=== PATIENT | female | born 2000 | race Caucasian/White ===

== ENCOUNTER 2019-10-08 23:18 | Emergency (ER) | payer OTHER ==
[2019-10-08] MEDS: LORazepam 1 MG Tab PO ONE (23:32)
--- NOTE | 2019-10-08 23:53 | EDM.PDOCBH ---
ED HPI GENERAL MEDICAL PROBLEM - General Chief Complaint: Behavioral/Psych Stated Complaint: SUICIDAL, INTOXICATED Time Seen by Provider: 10/08/19 23:19 Source of Information: Reports: Patient, Police History Limitations: Reports: Intoxication - History of Present Illness INITIAL COMMENTS - FREE TEXT/NARRATIVE: Patient comes emergency department today by the local Police Department with concerns of alcohol intoxication and suicidal ideation. This patient was found laying on the street intoxicated crying and stating that she was suicidal. The police brought her to the emergency department as she is suicidal. Upon arrival the patient relates that she has been suicidal for the years approximately 3 years. Today she was kicked out of her house with her friends because because he had concerns about her cleanliness of the house. She states that she drinks about 4 to 5 days a week enough to not remember anything that is happening. Has attempted to harm herself in the past by cutting her wrist. She has never sought out any treatment assistance or counseling. She did not take anything in an attempt to kill herself tonight. Her plan to kill her self is to lay on the street until someone drives her over. If this does not work she will go into the river when she is bored. She works at a [employer] here in [place]. All she wants to do is . She cannot take her life anymore she is done. She wants help and knows that she needs it. No COVID exposure and No COVID symptoms. - Related Data Allergies Allergy/AdvReac Type Severity Reaction Status Date / Time amoxicillin [From Augmentin] Allergy Hives Verified 10/08/19 23:19 clavulanic acid Allergy Hives Verified 10/08/19 23:19 [From Augmentin] Home Meds: Home Meds . [No Known Home Meds] 10/08/19 [History] Social & Family History - Tobacco Use Smoking Status *Q: Current Status Unknown ED ROS GENERAL - Review of Systems Review Of Systems: Comprehensive ROS is negative, except as noted in HPI. ED EXAM, BEHAVIORAL HEALTH - Physical Exam Exam: See Below Exam Limited By: Intoxication General Appearance: Alert, WD/WN, Anxious Eye Exam: Bilateral Eye: EOMI Ears: Normal External Exam Nose: Normal Inspection Throat/Mouth: Normal Inspection, Normal Lips Head: Atraumatic, Normocephalic Neck: Normal Inspection, Supple Respiratory/Chest: No Respiratory Distress, Lungs Clear, Normal Breath Sounds, No Accessory Muscle Use, Chest Non-Tender Cardiovascular: Normal Peripheral Pulses, Regular Rate, Rhythm GI/Abdominal: Normal Bowel Sounds, Soft, Non-Tender (Female) Exam: Deferred Rectal (Female) Exam: Deferred Back Exam: Normal Inspection Extremities: Normal Inspection, Normal Range of Motion, Normal Capillary Refill Neurological: Alert, Normal Mood/Affect, No Motor/Sensory Deficits Psychiatric: Alert, Oriented, Tearful (bawling and hyperventilating. ), Poor Eye Contact, Suicidal Plan (as per HPI. ), Suicidal Thoughts (as per HPI). No: Homicidal Thoughts, Phobic, Islam Delusions, Tangential Thoughts, Auditory Hallucinations, Visual Hallucinations, Grandiose Thoughts, Pressured Speech, Paranoid Thoughts, Threatening Behavior Skin Exam: Warm, Dry, Intact, Normal color, No rash COURSE, BEHAVIORAL HEALTH COMP - Course Vital Signs: Last Vital Signs Temp 98.3 F 10/08/19 23:19 Pulse 130 H 10/08/19 23:51 Resp 24 H 10/08/19 23:19 BP 149/73 H 10/08/19 23:19 Pulse Ox 100 10/08/19 23:19 Orders, Labs, Meds: Active Orders 24 hr Category Date Time Status SALICYLATE [REF] Stat Lab 10/08/19 23:30 Ordered Laboratory Tests 10/08/19 10/08/19 10/08/19 Range/Units 23:35 23:35 23:35 WBC (4.0-10.0) x10^3/uL RBC (4.00-5.50) x10^6/uL Hgb (12.0-16.0) g/dL Hct (33.0-47.0) % MCV (78.0-93.0) fL MCH (26.0-32.0) pg MCHC (32.0-36.0) g/dL RDW Coeff of Justice (10.0-15.0) % Plt Count (130-400) x10^3/uL Neut % (Auto) (50.0-80.0) % Lymph % (Auto) (25.0-50.0) % Shannon % (Auto) (2.0-11.0) % Eos % (Auto) (0.0-4.0) % Baso % (Auto) (0.2-1.2) % Sodium (136-145) mmol/L Potassium (3.5-5.1) mmol/L Chloride (98-107) mmol/L Carbon Dioxide (21-32) mmol/L Anion Gap (10-20) mmol/L BUN (7-18) mg/dL Creatinine (0.55-1.02) mg/dL Est Cr Clr Drug Dosing Estimated GFR (MDRD) Glucose (74-106) mg/dL Calcium (8.5-10.1) mg/dL Corrected Calcium (8.5-10.1) mg/dL Magnesium (1.8-2.4) mg/dL Total Bilirubin (0.2-1.0) mg/dL AST (15-37) U/L ALT (14-59) U/L Alkaline Phosphatase (46-116) U/L Total Protein (6.4-8.2) g/dL Albumin (3.4-5.0) g/dL Globulin Albumin/Globulin Ratio TSH, Ultra Sensitive (0.358-3.74) uIU/mL Urine Color Light yellow (YELLOW) Urine Appearance Clear (CLEAR) Urine pH 6.0 (5.0-8.0) Ur Specific [place] 1.010 Urine Protein Negative (NEGATIVE) mg/dL Urine Glucose (UA) Negative (NEGATIVE) mg/dL Urine Ketones Negative (NEGATIVE) mg/dL Urine Occult Blood Trace-lysed H (NEGATIVE) Urine Nitrite Negative (NEGATIVE) Urine Bilirubin Negative (NEGATIVE) Urine Urobilinogen 0.2 (0.2) EU/dL Ur Leukocyte Esterase Negative (NEGATIVE) Urine RBC 0-5 (NOT SEEN) /HPF Urine WBC 0-5 (NOT SEEN) /HPF Ur Squamous Epith Cells Few H (NEGATIVE) /HPF Urine Bacteria Not seen (NEGATIVE) /HPF Urine Mucus Rare H (NEGATIVE) /LPF Urine HCG, Qual Negative (NEGATIVE) Urine Opiates Screen Negative (NEGATIVE) Ur Buprenorphine Scrn Negative (NEGATIVE) Ur Oxycodone Screen Negative (NEGATIVE) Ur EDDP (Meth Metab) Negative (NEGATIVE) Urine Methadone Screen Negative (NEGATIVE) Acetaminophen (10-30) ug/ml Ur Barbiturates Screen Negative (NEGATIVE) Ur Tricyclics Screen Negative (NEGATIVE) Ur Phencyclidine Scrn Negative (NEGATIVE) Ur Amphetamine Screen Negative (NEGATIVE) U Methamphetamines Scrn Negative (NEGATIVE) Urine MDMA Screen Negative (NEGATIVE) U Benzodiazepines Scrn Negative (NEGATIVE) U Cocaine Metab Screen Negative (NEGATIVE) U Marijuana (THC) Screen Positive H (NEGATIVE) Ethyl Alcohol (0-3) mg/dL 10/08/19 10/08/19 10/08/19 Range/Units 23:49 23:49 23:49 WBC 5.0 (4.0-10.0) x10^3/uL RBC 4.67 (4.00-5.50) x10^6/uL Hgb 13.5 (12.0-16.0) g/dL Hct 40.0 (33.0-47.0) % MCV 85.7 (78.0-93.0) fL MCH 28.9 (26.0-32.0) pg MCHC 33.8 (32.0-36.0) g/dL RDW Coeff of Justice 13.4 (10.0-15.0) % Plt Count 197 (130-400) x10^3/uL Neut % (Auto) 62.7 (50.0-80.0) % Lymph % (Auto) 27.1 (25.0-50.0) % Shannon % (Auto) 8.2 (2.0-11.0) % Eos % (Auto) 1.4 (0.0-4.0) % Baso % (Auto) 0.6 (0.2-1.2) % Sodium 145 (136-145) mmol/L Potassium 3.5 (3.5-5.1) mmol/L Chloride 107 (98-107) mmol/L Carbon Dioxide 26 (21-32) mmol/L Anion Gap 15.5 (10-20) mmol/L BUN 6 L (7-18) mg/dL Creatinine 0.8 (0.55-1.02) mg/dL Est Cr Clr Drug Dosing TNP Estimated GFR (MDRD) > 60 Glucose 105 (74-106) mg/dL Calcium 8.8 (8.5-10.1) mg/dL Corrected Calcium 8.48 L (8.5-10.1) mg/dL Magnesium 2.2 (1.8-2.4) mg/dL Total Bilirubin 0.4 (0.2-1.0) mg/dL AST 14 L (15-37) U/L ALT 21 (14-59) U/L Alkaline Phosphatase 79 (46-116) U/L Total Protein 7.9 (6.4-8.2) g/dL Albumin 4.4 (3.4-5.0) g/dL Globulin 3.5 Albumin/Globulin Ratio 1.26 TSH, Ultra Sensitive 1.611 (0.358-3.74) uIU/mL Urine Color (YELLOW) Urine Appearance (CLEAR) Urine pH (5.0-8.0) Ur Specific [place] Urine Protein (NEGATIVE) mg/dL Urine Glucose (UA) (NEGATIVE) mg/dL Urine Ketones (NEGATIVE) mg/dL Urine Occult Blood (NEGATIVE) Urine Nitrite (NEGATIVE) Urine Bilirubin (NEGATIVE) Urine Urobilinogen (0.2) EU/dL Ur Leukocyte Esterase (NEGATIVE) Urine RBC (NOT SEEN) /HPF Urine WBC (NOT SEEN) /HPF Ur Squamous Epith Cells (NEGATIVE) /HPF Urine Bacteria (NEGATIVE) /HPF Urine Mucus (NEGATIVE) /LPF Urine HCG, Qual (NEGATIVE) Urine Opiates Screen (NEGATIVE) Ur Buprenorphine Scrn (NEGATIVE) Ur Oxycodone Screen (NEGATIVE) Ur EDDP (Meth Metab) (NEGATIVE) Urine Methadone Screen (NEGATIVE) Acetaminophen 0 L (10-30) ug/ml Ur Barbiturates Screen (NEGATIVE) Ur Tricyclics Screen (NEGATIVE) Ur Phencyclidine Scrn (NEGATIVE) Ur Amphetamine Screen (NEGATIVE) U Methamphetamines Scrn (NEGATIVE) Urine MDMA Screen (NEGATIVE) U Benzodiazepines Scrn (NEGATIVE) U Cocaine Metab Screen (NEGATIVE) U Marijuana (THC) Screen (NEGATIVE) Ethyl Alcohol 180 H (0-3) mg/dL Medications Discontinued Medications Generic Name Dose Route Start Last Admin Trade Name Nilo PRN Reason Stop Dose Admin Lorazepam 1 mg 10/08/19 23:28 10/08/19 23:32 Ativan PO 10/08/19 23:29 1 mg ONETIME ONE Administration Lorazepam 1 mg 10/09/19 00:30 10/09/19 00:34 Ativan PO 10/09/19 00:31 1 mg ONETIME ONE Administration Medical Clearance: 10/09/19 01:01 The patient was given 2 mg Ativan in the emergency department that did help calm her down somewhat. Alcohol is about 180 she is positive for THC she is medically cleared at this time for evaluation for mental health. I called and spoke with Jazmyn a screener for the [facility] and she visited at length with the patient. The screener agrees that the patient needs hospitalization at this time. She will make arrangement to get into the [facility]. Jazmyn called back and the patient has been accepted as a patient at the [facility]. PD to transfer. Departure - Departure Time of Disposition: 01:04 Disposition: DC/Tfer to Psych Hosp/Unit 65 Clinical Impression: Suicidal ideation Acute alcohol intoxication Qualifiers: Complication of substance-induced condition: uncomplicated Qualified Code(s): F10.920 - Alcohol use, unspecified with intoxication, uncomplicated - Discharge Information Forms: ED Department Discharge Sepsis Event Note (ED) - Evaluation Sepsis Screening Result: No Definite Risk - Focused Exam Vital Signs: Vital Signs Temp Pulse Resp BP Pulse Ox 10/08/19 23:51 130 H 10/08/19 23:19 98.3 F 161 H 24 H 149/73 H 100 - My Orders Last 24 Hours: My Active Orders 10/08/19 23:30 SALICYLATE [REF] Stat - Assessment/Plan Last 24 Hours: My Active Orders 10/08/19 23:30 SALICYLATE [REF] Stat
[2019-10-09 00:06] LABS: BARBITURATE SCREEN,URINE NEGATIVE (NEGATIVE); BENZODIAZEPINES SCREEN,URINE NEGATIVE (NEGATIVE); EDDP,URINE SCREEN NEGATIVE (NEGATIVE); METHAMPHETAMINE SCREEN, URINE NEGATIVE (NEGATIVE); TCA SCREEN,URINE NEGATIVE (NEGATIVE); THC SCREEN,URINE 50 NG/ML POSITIVE (NEGATIVE)
[2019-10-09 00:24] LABS: CHLORIDE,CL 107 mmol/L (98-107); SODIUM,NA 145 mmol/L (136-145)
[2019-10-09 00:31] LABS: ACETAMINOPHEN 0 ug/ml (10-30); ANION GAP 15.5 mmol/L (10-20)
[2019-10-09] MEDS: LORazepam 1 MG Tab PO ONE (00:34)
== END 2019-10-09 01:34 ==
LOC: VM.ED 23:18
DX: F10.120 Alcohol abuse with intoxication, uncomplicated (principal); R45.851 Suicidal ideations; Y90.6 Blood alcohol level of 120-199 mg/100 ml; Z88.1 Allergy status to other antibiotic agents
CPT/HCPCS: 36415; 80053; 80305-QW; 80307; 81001; 81025; 83735; 84443; 85025; 99284; A9270-GY

== ENCOUNTER 2020-01-16 21:23 | Emergency (ER) | payer OTHER ==
[2020-01-16 22:21] LABS: CHLORIDE,CL 103 mmol/L (98-107); SODIUM,NA 139 mmol/L (136-145)
[2020-01-16] MEDS ORDERED: Haloperidol Lactate 5 MG/ML SDV IM ONE (22:37)
[2020-01-16 22:47] LABS: ANION GAP 16.6 mmol/L (10-20)
[2020-01-16 23:02] LABS: BARBITURATE SCREEN,URINE NEGATIVE (NEGATIVE); BENZODIAZEPINES SCREEN,URINE NEGATIVE (NEGATIVE); EDDP,URINE SCREEN NEGATIVE (NEGATIVE); METHAMPHETAMINE SCREEN, URINE NEGATIVE (NEGATIVE); TCA SCREEN,URINE NEGATIVE (NEGATIVE); THC SCREEN,URINE 50 NG/ML NEGATIVE (NEGATIVE)
[2020-01-17 00:04] LABS: ACETAMINOPHEN 0 ug/ml (10-30)
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
== END 2020-01-17 01:19 ==
LOC: VM.ED 21:23
DX: F10.120 Alcohol abuse with intoxication, uncomplicated (principal); R45.851 Suicidal ideations; Y90.8 Blood alcohol level of 240 mg/100 ml or more; Z88.1 Allergy status to other antibiotic agents; Z20.828 Contact with and (suspected) exposure to other viral communicable diseases
CPT/HCPCS: 36415; 80053; 80305; 80307; 81003; 81025; 83735; 84443; 85025; 86140; 87635; 96372; 99284; 99285; J1630; U0002

== ENCOUNTER 2020-08-20 23:36 | Emergency (ER) | payer OTHER ==
[2020-08-21] MEDS ORDERED: Ondansetron 4 MG/2 ML SDV ONE
[2020-08-21] MEDS ORDERED: Sodium Chloride 0.9% 1,000 ML IV ONE (00:04)
[2020-08-21 00:31] LABS: BASE EXCESS VENOUS -7 mmol/L ((-2)-3); BICARBONATE,VENOUS 19 mmol/L (22-29); O2 SATURATION VENOUS 94 %; PCO2 VENOUS 33 mmHG (41-51); PH,VENOUS 7.36 pH (7.33-7.43); PO2 VENOUS 72 mmHG
--- NOTE | 2020-08-21 00:31 | EDM.PDOCBH ---
ED HPI GENERAL MEDICAL PROBLEM - General Chief Complaint: Drug or Alcohol Abuse Stated Complaint: Overdose Time Seen by Provider: 08/21/20 00:00 Source of Information: Reports: Patient, EMS, Old Records History Limitations: Reports: Intoxication, Uncooperative - History of Present Illness INITIAL COMMENTS - FREE TEXT/NARRATIVE: Patient is brought in by EMS for alcohol abuse, drug overdose and suicidal ideation. She has a long standing history of alcoholism and past suicidal ideation. She sent snapchats to friends tonight with pictures of pills stating she was going to kill herself. Her cousin came to her room and found her minimally responsive. she started compressions x a couple and had a response from the patient. police arrived on scene and administered narcan and she was rousable to sternal rub but tachycardic, breathing on her own and had a blood glucose of >100. She is more alert at arrival to the ED. she was found by medics to have a large amount of ibuprofen gel caps around her , roughly 25 of the 200 mg strength, an empty bottle of flagyl 500 mg ( filled 03/12/20 #14), a bottle valacyclovir 1 gram with 3 tablets in it ( filled 03/13/20 #20) and doxepin 250mg with 3 left ( filled 03/13/20 # 30). at arrival tot he ED she had been sonorous, protecting her airway, tachycardic but not very responsive. at arrival to the ED, she is responsive to sternal rub, starts to talk and crying, slurred speech and then vomits a large amount of bright green stomach contents smelling of alcohol. Admits to a large amount of green colored alcohol tonight and states that she " has a large tolerance". States she just wants to , then states she just wants to go home, states she does not have money to be hospitalized or for a psych bed and can't be gone a week. She is then beligerent, not cooperative, fighting exam and crying. Refusing evaluation and blood draw, protecting her airway Onset: Today Duration: Hour(s): Severity: Moderate Associated Symptoms: Reports: Confusion, Nausea/Vomiting - Related Data Allergies Allergy/AdvReac Type Severity Reaction Status Date / Time amoxicillin [From Augmentin] Allergy Hives Verified 08/21/20 00:49 clavulanic acid Allergy Hives Verified 08/21/20 00:49 [From Augmentin] Home Meds: Home Meds . [No Known Home Meds] 10/08/19 [History] Past Medical History Psychiatric History: Reports: Addiction, Suicidal Ideation Social & Family History - Alcohol Use Alcohol Use History: Yes Alcohol Use in Last Twelve Months: Yes Alcohol Use Frequency: Binges, Daily - Recreational Drug Use Recreational Drug Use: Yes Drug Use in Last 12 Months: Yes Recreational Drug Type: Reports: Marijuana/Hashish ED ROS GENERAL - Review of Systems Review Of Systems: See Below Constitutional: Reports: No Symptoms. Denies: Fever, Chills HEENT: Reports: No Symptoms. Denies: Nose Pain, Sinus Problem, Throat Swelling Respiratory: Reports: No Symptoms. Denies: Shortness of Breath, Cough Cardiovascular: Reports: No Symptoms. Denies: Chest Pain, Dyspnea on Exertion GI/Abdominal: Reports: Nausea, Vomiting. Denies: Abdominal Pain Musculoskeletal: Reports: No Symptoms Neurological: Reports: Confusion Psychiatric: Reports: No Symptoms, Agitation, Anxiety, Mood Lability, Suicidal Ideation ED EXAM, BEHAVIORAL HEALTH - Physical Exam Exam: See Below Exam Limited By: Combative/Threatening General Appearance: Alert, Moderate Distress, Other (combative, refusing care, moving all extremities, crying) Eye Exam: Bilateral Eye: EOMI, Nystagmus, PERRL (constricted 2 mm reacatice but sluggish) Ears: Normal External Exam Nose: Normal Inspection Throat/Mouth: Other (dry mucous membranes) Head: Atraumatic Neck: Normal Inspection Respiratory/Chest: No Respiratory Distress, Lungs Clear, Normal Breath Sounds, Chest Non-Tender Cardiovascular: No Murmur, Tachycardia GI/Abdominal: Normal Bowel Sounds, Soft, Non-Tender, No Organomegaly Extremities: Normal Inspection, Normal Range of Motion, Non-Tender, No Pedal Edema Neurological: Alert, CN II-XII Intact, No Motor/Sensory Deficits, Oriented x 3 (orientated, moves allextremities, protects her airway, no focal neuro deficit. smells of alcohol, nystagmus is not rotary.), Memory Loss Recent Events (confused with progression of details of night, tries to explain however story is confusing from being [facility] the [employer] [facility] to being at the [place] in [place]) Psychiatric: Depressed Mood, Tearful, Agitated, Uncooperative, Suicidal Thoughts, Threatening Behavior #1 Interpretation EKG Date: 08/21/20 Time: 00:06 Rhythm: NSR Rate (Beats/Min): 124 (sinus tachycardia) [place]: Normal P-Wave: Present QRS: Normal ST-T: Normal QT: Normal COURSE, BEHAVIORAL HEALTH COMP - Course Vital Signs: see nurses notes. blood pressures 100/60 most of th visit, heart rate initially 140, o2 sats 98% room air, respirations 14. pulse does lower to 110 Orders, Labs, Meds: Active Orders 24 hr Category Date Time Status Cardiac Monitoring [RC] . DIRECTED Care 08/21/20 00:08 Ordered EKG Documentation Completion [RC] STAT Care 08/21/20 00:04 Ordered Initiate/Renew Violent-Self Destructive Restraints >/= Care 08/21/20 00:15 Ordered 16yo Q4H Nrsg Assess: Viol-S.Dest Rest [RC] Q1H Care 08/21/20 00:06 Ordered SALICYLATE [REF] Stat Lab 08/21/20 00:04 Ordered Sodium Chloride 0.9% [Normal Saline] 1,000 ml Med 08/21/20 01:30 Ordered IV ASDIRECTED Medication Orders Sodium Chloride (Normal Saline) 1,000 mls @ 250 mls/hr IV ASDIRECTED PARAG Laboratory Tests 08/21/20 08/21/20 08/21/20 Range/Units 00:04 00:04 00:04 WBC 4.2 (4.0-10.0) x10^3/uL RBC 4.77 (4.00-5.50) x10^6/uL Hgb 14.2 (12.0-16.0) g/dL Hct 41.7 (33.0-47.0) % MCV 87.4 (78.0-93.0) fL MCH 29.8 (26.0-32.0) pg MCHC 34.1 (32.0-36.0) g/dL RDW Coeff of Justice 12.5 (10.0-15.0) % Plt Count 169 D (130-400) x10^3/uL Neut % (Auto) 67.0 (50.0-80.0) % Lymph % (Auto) 26.5 (25.0-50.0) % Bent % (Auto) 5.5 (2.0-11.0) % Eos % (Auto) 0.5 (0.0-4.0) % Baso % (Auto) 0.5 (0.2-1.2) % PT 10.4 (9.9-12.5) SEC INR 0.9 L (2.0-3.5) VBG pH (7.33-7.43) pH VBG pCO2 (41-51) mmHG VBG pO2 mmHG VBG HCO3 (22-29) mmol/L VBG Total CO2 (23-30) mmol/L VBG O2 Saturation % VBG Base Excess ((-2)-3) mmol/L Sodium 144 (136-145) mmol/L Potassium 3.1 L (3.5-5.1) mmol/L Chloride 107 (98-107) mmol/L Carbon Dioxide 22 (21-32) mmol/L Anion Gap 18.1 H (5-15) mmol/L BUN 4 L (7-18) mg/dL Creatinine 0.9 (0.55-1.02) mg/dL Est Cr Clr Drug Dosing TNP Estimated GFR (MDRD) > 60 Glucose 138 H (70-99) mg/dL Calcium 8.1 L (8.5-10.1) mg/dL Corrected Calcium 8.0 L (8.5-10.1) mg/dL Total Bilirubin 0.2 (0.2-1.0) mg/dL AST 18 (15-37) U/L ALT 33 (14-59) U/L Alkaline Phosphatase 71 (46-116) U/L Creatine Kinase 72 (26-192) U/L Total Protein 8.0 (6.4-8.2) g/dL Albumin 4.1 (3.4-5.0) g/dL Globulin 3.9 Albumin/Globulin Ratio 1.05 TSH, Ultra Sensitive 2.458 (0.358-3.74) uIU/mL Urine Color (YELLOW) Urine Appearance (CLEAR) Urine pH (5.0-8.0) Ur Specific [place] Urine Protein (NEGATIVE) mg/dL Urine Glucose (UA) (NEGATIVE) mg/dL Urine Ketones (NEGATIVE) mg/dL Urine Occult Blood (NEGATIVE) Urine Nitrite (NEGATIVE) Urine Bilirubin (NEGATIVE) Urine Urobilinogen (0.2) EU/dL Ur Leukocyte Esterase (NEGATIVE) Urine RBC (NOT SEEN) /HPF Urine WBC (NOT SEEN) /HPF Ur Squamous Epith Cells (NOT SEEN) /HPF Urine Bacteria (NOT SEEN) /HPF Urine Mucus (NOT SEEN) /LPF Urine Opiates Screen (NEGATIVE) Ur Buprenorphine Scrn (NEGATIVE) Ur Oxycodone Screen (NEGATIVE) Urine Methadone Screen (NEGATIVE) Acetaminophen 0 L (10-30) ug/ml Ur Barbituates Screen (NEGATIVE) Ur Phencyclidine Scrn (NEGATIVE) Ur Amphetamines Screen (NEGATIVE) U Methamphetamines Scrn (NEGATIVE) Urine MDMA Screen (NEGATIVE) U Benzodiazepines Scrn (NEGATIVE) Urine Cocaine Screen (NEGATIVE) U Marijuana (THC) Screen (NEGATIVE) Ethyl Alcohol 281 H (0-3) mg/dL SARS CoV-2 RNA Rapid JHON (NEGATIVE) 08/21/20 08/21/20 08/21/20 Range/Units 00:04 00:51 01:09 WBC (4.0-10.0) x10^3/uL RBC (4.00-5.50) x10^6/uL Hgb (12.0-16.0) g/dL Hct (33.0-47.0) % MCV (78.0-93.0) fL MCH (26.0-32.0) pg MCHC (32.0-36.0) g/dL RDW Coeff of Justice (10.0-15.0) % Plt Count (130-400) x10^3/uL Neut % (Auto) (50.0-80.0) % Lymph % (Auto) (25.0-50.0) % Bent % (Auto) (2.0-11.0) % Eos % (Auto) (0.0-4.0) % Baso % (Auto) (0.2-1.2) % PT (9.9-12.5) SEC INR (2.0-3.5) VBG pH 7.36 (7.33-7.43) pH VBG pCO2 33 L (41-51) mmHG VBG pO2 72 mmHG VBG HCO3 19 L (22-29) mmol/L VBG Total CO2 20 L (23-30) mmol/L VBG O2 Saturation 94 % VBG Base Excess -7 L ((-2)-3) mmol/L Sodium (136-145) mmol/L Potassium (3.5-5.1) mmol/L Chloride (98-107) mmol/L Carbon Dioxide (21-32) mmol/L Anion Gap (5-15) mmol/L BUN (7-18) mg/dL Creatinine (0.55-1.02) mg/dL Est Cr Clr Drug Dosing Estimated GFR (MDRD) Glucose (70-99) mg/dL Calcium (8.5-10.1) mg/dL Corrected Calcium (8.5-10.1) mg/dL Total Bilirubin (0.2-1.0) mg/dL AST (15-37) U/L ALT (14-59) U/L Alkaline Phosphatase (46-116) U/L Creatine Kinase (26-192) U/L Total Protein (6.4-8.2) g/dL Albumin (3.4-5.0) g/dL Globulin Albumin/Globulin Ratio TSH, Ultra Sensitive (0.358-3.74) uIU/mL Urine Color Light yellow (YELLOW) Urine Appearance Clear (CLEAR) Urine pH 6.5 (5.0-8.0) Ur Specific [place] 1.010 Urine Protein Negative (NEGATIVE) mg/dL Urine Glucose (UA) Negative (NEGATIVE) mg/dL Urine Ketones Negative (NEGATIVE) mg/dL Urine Occult Blood Negative (NEGATIVE) Urine Nitrite Negative (NEGATIVE) Urine Bilirubin Negative (NEGATIVE) Urine Urobilinogen 0.2 (0.2) EU/dL Ur Leukocyte Esterase Negative (NEGATIVE) Urine RBC 0-5 (NOT SEEN) /HPF Urine WBC Not seen (NOT SEEN) /HPF Ur Squamous Epith Cells Rare (NOT SEEN) /HPF Urine Bacteria Rare (NOT SEEN) /HPF Urine Mucus Not seen (NOT SEEN) /LPF Urine Opiates Screen (NEGATIVE) Ur Buprenorphine Scrn (NEGATIVE) Ur Oxycodone Screen (NEGATIVE) Urine Methadone Screen (NEGATIVE) Acetaminophen (10-30) ug/ml Ur Barbituates Screen (NEGATIVE) Ur Phencyclidine Scrn (NEGATIVE) Ur Amphetamines Screen (NEGATIVE) U Methamphetamines Scrn (NEGATIVE) Urine MDMA Screen (NEGATIVE) U Benzodiazepines Scrn (NEGATIVE) Urine Cocaine Screen (NEGATIVE) U Marijuana (THC) Screen (NEGATIVE) Ethyl Alcohol (0-3) mg/dL SARS CoV-2 RNA Rapid JHON Negative (NEGATIVE) 08/21/20 Range/Units 01:09 WBC (4.0-10.0) x10^3/uL RBC (4.00-5.50) x10^6/uL Hgb (12.0-16.0) g/dL Hct (33.0-47.0) % MCV (78.0-93.0) fL MCH (26.0-32.0) pg MCHC (32.0-36.0) g/dL RDW Coeff of Justice (10.0-15.0) % Plt Count (130-400) x10^3/uL Neut % (Auto) (50.0-80.0) % Lymph % (Auto) (25.0-50.0) % Bent % (Auto) (2.0-11.0) % Eos % (Auto) (0.0-4.0) % Baso % (Auto) (0.2-1.2) % PT (9.9-12.5) SEC INR (2.0-3.5) VBG pH (7.33-7.43) pH VBG pCO2 (41-51) mmHG VBG pO2 mmHG VBG HCO3 (22-29) mmol/L VBG Total CO2 (23-30) mmol/L VBG O2 Saturation % VBG Base Excess ((-2)-3) mmol/L Sodium (136-145) mmol/L Potassium (3.5-5.1) mmol/L Chloride (98-107) mmol/L Carbon Dioxide (21-32) mmol/L Anion Gap (5-15) mmol/L BUN (7-18) mg/dL Creatinine (0.55-1.02) mg/dL Est Cr Clr Drug Dosing Estimated GFR (MDRD) Glucose (70-99) mg/dL Calcium (8.5-10.1) mg/dL Corrected Calcium (8.5-10.1) mg/dL Total Bilirubin (0.2-1.0) mg/dL AST (15-37) U/L ALT (14-59) U/L Alkaline Phosphatase (46-116) U/L Creatine Kinase (26-192) U/L Total Protein (6.4-8.2) g/dL Albumin (3.4-5.0) g/dL Globulin Albumin/Globulin Ratio TSH, Ultra Sensitive (0.358-3.74) uIU/mL Urine Color (YELLOW) Urine Appearance (CLEAR) Urine pH (5.0-8.0) Ur Specific [place] Urine Protein (NEGATIVE) mg/dL Urine Glucose (UA) (NEGATIVE) mg/dL Urine Ketones (NEGATIVE) mg/dL Urine Occult Blood (NEGATIVE) Urine Nitrite (NEGATIVE) Urine Bilirubin (NEGATIVE) Urine Urobilinogen (0.2) EU/dL Ur Leukocyte Esterase (NEGATIVE) Urine RBC (NOT SEEN) /HPF Urine WBC (NOT SEEN) /HPF Ur Squamous Epith Cells (NOT SEEN) /HPF Urine Bacteria (NOT SEEN) /HPF Urine Mucus (NOT SEEN) /LPF Urine Opiates Screen Negative (NEGATIVE) Ur Buprenorphine Scrn Negative (NEGATIVE) Ur Oxycodone Screen Negative (NEGATIVE) Urine Methadone Screen Negative (NEGATIVE) Acetaminophen (10-30) ug/ml Ur Barbituates Screen Negative (NEGATIVE) Ur Phencyclidine Scrn Negative (NEGATIVE) Ur Amphetamines Screen Negative (NEGATIVE) U Methamphetamines Scrn Negative (NEGATIVE) Urine MDMA Screen Negative (NEGATIVE) U Benzodiazepines Scrn Negative (NEGATIVE) Urine Cocaine Screen Negative (NEGATIVE) U Marijuana (THC) Screen Positive H (NEGATIVE) Ethyl Alcohol (0-3) mg/dL SARS CoV-2 RNA Rapid JHON (NEGATIVE) Medications Generic Name Dose Route Start Last Admin Trade Name Freq PRN Reason Stop Dose Admin Sodium Chloride 1,000 mls @ 250 mls/hr 08/21/20 01:30 Normal Saline IV ASDIRECTED REPLACED BY [facility] Discontinued Medications Generic Name Dose Route Start Last Admin Trade Name Freq PRN Reason Stop Dose Admin Sodium Chloride 1,000 mls @ 999 mls/hr 08/21/20 00:04 Normal Saline IV 08/21/20 01:04 ONETIME ONE Potassium Chloride/Sodium Chloride 1,000 mls @ 250 mls/hr 08/21/20 01:00 Normal Saline With 40 Meq Kcl IV ASDIRECTED REPLACED BY [facility] Ondansetron HCl Confirm 08/21/20 00:00 Ondansetron 4 Mg/2 Ml Sdv Administered 08/21/20 00:01 Dose 4 mg .ROUTE .STK-MED ONE Re-Assessment/Re-Exam: Patient is initially sonorous, arousable to sternal rub. as she is stripped of her clothes, she is talking but slurred speech. sits up on her own and vomits. Starts crying and asks if she can be let go to go home. Aggressive, combative and refusing blood draw. arguing with staff, moving all extremities. tachyca rdia on the monitor, good O2 sats. continues to argue with staff and not being cooperative. advised of her medical legal hold for psychiatric reasons and that she is not allowed to refuse care. Refusing to still cooperate, Leather restraints are placed and patient is actually cooperative with these being placed and now allows blood draw. Continues to beg with staff to be let go and not sent to [facility] or [place]. She then asks for [facility] as her inpatient psychiatric unit of choice. reviewed her medications. Do not think high risk of the amount of medications taken. Also has vomited large amount. Will not place NG. Call to poison control late information from friends, drinking all day, had problems for weeks. Texted someone at 10 pm for a ride from bar, somehow got home. posted on [employer] Anywhere a picture of pills stating was playing " pill roulette", " See you all in the next life" , " I don't care if I ". Friends came to her house and found her with altered breathing, 911 was called,they told her to start cpr, minimal compressions. When PD arrived she did have a pulse. Narcan 4 mg intranasal given. Better pulse and was breathing. EMs then arrived Discussed case with poison control, concern for the doxepin, ( TCA overdose) again unsure of amount take. Advised cardiac monitoring for 6-8 hours, will start to see widened QRS if affecting her and if gets >120 needs an amp of bicarb and possibly a bicarb drip. She needs seizure precautions and if they occur, should be treated with ativan. ibuprofen can cause anion gap acidosis, and chemistries should be checked at 04:00. Continue IV hydration and will replace potassium IV 40 meq in 1 liter of normal saline. 1:00 patient is cooperative and restraints are removed, up to use the commode for urine. Covid test pending. 1:10 Emergency prison forms are filled out and copy given to patient. Answer with profanities and yelling. Will need transfer for medical monitoring and then transfer to psych after this or inpatient eval 1:12 patient becomes aggressive and beligerant on the way back to bed, pulls out her IV and is treatening staff. restraints reapplied. IV restarted, continues to be abusive and swearing at staff. 13:30 call to [facility] and patient is a [place] patient. No beds tonight. Not appropriate for keeping at this facility. Call to [facility] for medical monitoring. 1:55 Dr. Arias, [facility] ED physician accepts on behalf of the hospitalist. They do not have psych there but she needs medical telemetery and is at risk for EToh withdrawal given her extensive history of alcohol abuse. Her blood alcohol is routinely 300. Dr. Arias asks for patient to get out of restraints as soon as possible, suggests zyprexa or ativan. Patient has already appeared cooperative and when released, removed her IV. Given her high level of intoxication, she is now falling asleep sitting up. Do not feel need for ativan at this point, but will offer if becomes aggressive and for EMs transfer. Concern for widening QRS with other medications and losing her airway with more sedative medications. Departure - Departure Time of Disposition: 01:03 Disposition: DC/Tfer to [facility] 02 Clinical Impression: Alcohol abuse, Overdose, Suicide attempt - Discharge Information *PRESCRIPTION DRUG MONITORING PROGRAM REVIEWED*: Not Applicable *COPY OF PRESCRIPTION DRUG MONITORING REPORT IN PATIENT JAC: Not Applicable Referrals: Jil Rivera MD [Primary Care Provider] - Forms: ED Department Discharge, Interfacility Transfer ELFEGOALA - My Orders Last 24 Hours: My Active Orders 08/21/20 00:04 EKG Documentation Completion [RC] STAT SALICYLATE [REF] Stat 08/21/20 00:06 Nrsg Assess: AshwiniS.Dest Rest [RC] Q1H 08/21/20 00:08 Cardiac Monitoring [RC] . DIRECTED 08/21/20 00:15 Initiate/Renew Violent-Self Destructive Restraints >/=18yo Q4H 08/21/20 01:30 Sodium Chloride 0.9% [Normal Saline] 1,000 ml IV ASDIRECTED - Assessment/Plan Last 24 Hours: My Active Orders 08/21/20 00:04 EKG Documentation Completion [RC] STAT SALICYLATE [REF] Stat 08/21/20 00:06 Nrsg Assess: Viol-S.Dest Rest [RC] Q1H 08/21/20 00:08 Cardiac Monitoring [RC] . DIRECTED 08/21/20 00:15 Initiate/Renew Violent-Self Destructive Restraints >/=18yo Q4H 08/21/20 01:30 Sodium Chloride 0.9% [Normal Saline] 1,000 ml IV ASDIRECTED
[2020-08-21 00:37] LABS: CHLORIDE,CL 107 mmol/L (98-107); SODIUM,NA 144 mmol/L (136-145)
[2020-08-21 00:38] LABS: ACETAMINOPHEN 0 ug/ml (10-30); ANION GAP 18.1 mmol/L (5-15)
[2020-08-21] MEDS ORDERED: Sodium Chloride 0.9% with KCl 1,000 ML IV SCH (01:00)
[2020-08-21 01:16] LABS: BUPRENORPHINE,URINE NEGATIVE (NEGATIVE); MARIJUANA,URINE POSITIVE (NEGATIVE); METHYLENEDIOXYMETHAMP,UR NEGATIVE (NEGATIVE); PHENCYCLIDINE,URINE NEGATIVE (NEGATIVE)
[2020-08-21] MEDS ORDERED: Sodium Chloride 0.9% 1,000 ML IV SCH (01:30)
== END 2020-08-21 02:55 | disposition short-term general hospital (02) ==
LOC: SUPCPDRO 23:36 → VM.ED 23:36
DX: T37.3X2A Poisoning by other antiprotozoal drugs, intentional self-harm, initial encounter (principal); T37.5X2A Poisoning by antiviral drugs, intentional self-harm, initial encounter; T43.012A Poisoning by tricyclic antidepressants, intentional self-harm, initial encounter; F10.10 Alcohol abuse, uncomplicated; Z88.0 Allergy status to penicillin; Z20.822 Contact with and (suspected) exposure to COVID-19; Y90.8 Blood alcohol level of 240 mg/100 ml or more
CPT/HCPCS: 36415; 80053; 80143; 80179; 80305-QW; 80307; 81001; 82550; 82803; 84443; 85025; 85610; 93005; 93010; 96374; 99284; 99285-25; J2405; J3480; J7030; U0002

== ENCOUNTER 2021-07-19 02:35 | Emergency (ER) | payer OTHER, MEDICAID ==
[2021-07-19] MEDS ORDERED: Sodium Chloride 0.9% 1,000 ML IV ONE (03:01)
[2021-07-19] MEDS ORDERED: Ketorolac 30 MG/ML SDV IVPUSH ONE (03:02)
[2021-07-19] MEDS ORDERED: cefTRIAXone 1 GM Vial IVPUSH ONE (03:03)
[2021-07-19] MEDS ORDERED: Ondansetron 4 MG/2 ML SDV IVPUSH ONE (03:03)
[2021-07-19] MEDS ORDERED: Acetaminophen 325 MG Tab PO ONE (03:04)
[2021-07-19] MEDS ORDERED: Take Home: Sulfamethoxazole/Trimethoprim 800-160 MG Tab, 2 Tab Pack PO ONE (03:15)
[2021-07-19] MEDS ORDERED: Take Home: Ondansetron 4 MG Tab.DIS, 5 Tab Pack PO ONE (03:15)
== END 2021-07-19 04:10 | disposition home or self-care (01) ==
LOC: VM.ED 02:35
DX: R10.9 Unspecified abdominal pain (principal); N39.0 Urinary tract infection, site not specified; Z79.899 Other long term (current) drug therapy; Z88.0 Allergy status to penicillin; Z88.1 Allergy status to other antibiotic agents
CPT/HCPCS: 81000; 87086; 87088; 87186; 96361; 96374; 96375; 99284; 99284-25; A9270-GY; J0696; J1885; J2405; J7030; Q0162